=== PATIENT | female | born 1955 | race Caucasian/White ===

== ENCOUNTER 2016-04-01 09:32 | Emergency (ER) | payer OTHER ==
[~2016-04-01] VITALS: Ht 167.6 cm; Wt 104.0 kg
[~2016-04-01 09:32] MED LIST: ABL/15 PO; ALBUAER19 INH; FLUT0.15; LORA-741 PO; OMEP20CA59 PO; SERT100T PO; SERT25TA PO; vitamin d 3 PO
[2016-04-01] MEDS ORDERED: SODIUM CHLORIDE 0.9% 500ML 500 ML IV STA (09:42)
[2016-04-01 09:43] VITALS: TEMP 36.9; Ht 167.6 cm; Wt 104.0 kg
[2016-04-01] MEDS ORDERED: METHYLPREDNISOLONE 125 MG VIAL IV STA (09:57)
[2016-04-01] MEDS ORDERED: FAMOTIDINE IV INJ 20 MG in DEXTROSE 5% 100ML 100 ML IV STA (09:57)
[2016-04-01 10:06] LABS: BASO % 0.5 %; BASO ABS # 0.04 K/uL (0-0.2); COMPLETE YES; HEMATOCRIT 42.8 % (37-47); IG% 0.3 %; LYMPH % 36.3 %; LYMPH ABS # 2.74 K/uL (1.2-3.4); MEAN CELL VOLUME 82.1 fL (80-100); MEAN CORPUSCULAR HEMOGLOBIN 27.6 pg (25-34); MEAN CORPUSCULAR HGB CONC 33.6 g/dl (32-36); MEAN PLATELET VOLUME 10.1 fL (7.4-10.4); MONO % 8.5 %; NEUT % 54.4 %; PLATELET COUNT 275 K/uL (130-400); RED BLOOD COUNT 5.21 M/uL (4.2-5.4); WHITE BLOOD COUNT 7.54 K/uL (4.8-10.8)
[2016-04-01] MEDS ORDERED: ARIP2TAB3 PO (10:19)
[2016-04-01] MEDS ORDERED: SERT50TA PO (10:19)
[2016-04-01] MEDS ORDERED: CHOL100010 PO (10:20)
[2016-04-01 10:22] LABS: BUN/CREATININE RATIO 18.5 (10-20); CALCIUM 9.1 mg/dl (8.5-10.1); CREATININE 1.1 mg/dl (0.60-1.20); POTASSIUM 3.6 mmol/L (3.5-5.1)
--- NOTE | 2016-04-01 10:25 | EMERGENCY ROOM VISIT NOTE ---
History First contact with patient: 09:41 Chief Complaint: ALLERGIC REACTION Stated Complaint: ALLERGIC REACTION Nursing Triage Summary: pt to the ED via EMS from home with c/o right sdied facial swelling and errythema and inital SOB that pt does not have here in the ED pt stated that she took bactrim 1 dose at 3pm and doxycycline at 8pm which was her 2nd doseage. pt noticed at 3am that she had some symptoms when she woke up and looked in the mirror . pt is taking ABX for left LE infection no told medical office she had SOB but has none currently and no throat swelling. pt was given 50 of benedryl by EMS pt has a hx of schizo affective disorder with bipolar. pt has some swelling and errythema to right side of upper lip but no other hives or complaints pt does not admitt to any other new meds, soaps, lotions or foods History of Present Illness The patient is a 61 year old female who presents to the Emergency Room via ambulance with complaints of an "allergic reaction". The patient states that she believes she has had allergic reaction after taking Bactrim and doxycycline. She states day she saw Dr. Jamila Monet, a case finisher . In [place] for a an ulcer on her left lower extremity near her left ankle. She states that a culture and biopsy were obtained and a blue or[place]ar[place]iut was drawn around this area at the time. She was given doxycycline 100 mg 10 days. She was also prescribed mupirocin Appointment. She states that the redness did extremity on the borders therefore she went to be [facility] yesterday. She was inserted upon Bactrim DS. She took the first dose yesterday around 3 PM. She states that the erythema around the ulcer disappeared and she went to bed. She said she goes to bed early. She takes Zoloft with makes her sleepy. She then woke up around midnight and some dried Cheerios without milk. She then states around 3 AM she woke and looked in the mirror and saw that her face was red and she had called Jamila Monet's office and was told to go to the emergency department. She then came here via ambulance for facial swelling and pressure behind the eyes and dry mouth. She also felt that with the swelling in the face that she has had some shallow breathing. She denies any chest pain, or history of blood clots. Review of Systems A complete 10-point Review of Systems was discussed with the patient, with pertinent positives and negatives listed in the History of Present Illness. All remaining Review of Systems questions can be considered negative unless otherwise specified. Past Medical/Surgical History Schizoaffective disorder Social History Smoking Status: Never Smoker Drug Use: none Marital Status: single Occupation Status: disabled Current/Historical Medications Scheduled Albuterol Inhaler (Ventolin Inhaler), 2 PUFFS INH PRN Aripiprazole (Abilify), 15 MG PO DAILY Aripiprazole (Abilify), 2 MG PO DAILY Azelastine Hcl (Astelin Nasal [place]), 1-2 SPRAYS NA BID Cholecalciferol (Vitamin D), 4,000 UNITS PO DAILY Clindamycin HCl (Clindamycin HCl), 1 CAP PO QID Omeprazole (Prilosec), 20 MG PO DAILY Prednisone (Prednisone Tab), 1 TAB PO DAILY Sertraline (Zoloft), 50 MG PO DAILY Sertraline Hcl (Zoloft), 37.5 MG PO DAILY Allergies Coded Allergies: Ascorbate (Unverified Allergy, Unknown, diarrhea, 04/01/16) Biotin (Unverified Allergy, Unknown, diarrhea, 04/01/16) CI Pigment Blue 63 (Unverified Allergy, Unknown, other, 04/01/16) Calcium (Unverified Allergy, Unknown, diarrhea, 04/01/16) Carbohydrate (Unverified Allergy, Unknown, diarrhea, 04/01/16) Chloride (Unverified Allergy, Unknown, diarrhea, 04/01/16) Chromium (Unverified Allergy, Unknown, diarrhea, 04/01/16) Duloxetine (Unverified Allergy, Unknown, other, 04/01/16) Erythromycin (Verified Allergy, Unknown, ., 04/01/16) Folic Acid (Unverified Allergy, Unknown, diarrhea, 04/01/16) Gabapentin (Verified Allergy, Unknown, ., 04/01/16) Iodine (Verified Allergy, Unknown, ., 04/01/16) Latex1 -Allergic Contact Dermititis (Verified Allergy, Unknown, ., 04/01/16) Lorazepam (Unverified Allergy, Unknown, lightheaded, 04/01/16) Magnesium (Unverified Allergy, Unknown, diarrhea, 04/01/16) Manganese (Unverified Allergy, Unknown, diarrhea, 04/01/16) Molybdenum (Unverified Allergy, Unknown, diarrhea, 04/01/16) Niacin (Unverified Allergy, Unknown, diarrhea, 04/01/16) Phenylephrine (Unverified Allergy, Unknown, dizzy, 04/01/16) Potassium (Unverified Allergy, Unknown, diarrhea, 04/01/16) Protein (Unverified Allergy, Unknown, diarrhea, 04/01/16) Pyridoxine (Unverified Allergy, Unknown, diarrhea, 04/01/16) Selenium (Unverified Allergy, Unknown, diarrhea, 04/01/16) Sulfamethoxazole w/Trimethoprim (Unverified Allergy, Unknown, swelling, 04/01/16) Vitamin D (Unverified Allergy, Unknown, diarrhea, 04/01/16) Uncoded Allergies: CEFCIL (Allergy, Unknown, ., 06/03/11) ENVIRONMENTAL (Allergy, Unknown, ., 01/03/15) Physical Exam Vital Signs Date Time Temp Pulse Resp B/P Pulse Ox O2 Delivery O2 Flow Rate FiO2 04/01/16 13:02 67 16 146/83 97 04/01/16 11:28 68 17 118/76 95 Room Air 04/01/16 09:43 36.9 66 20 133/53 99 Room Air 04/01/16 09:39 62 Physical Exam VITAL SIGNS - Vital signs and nursing notes were reviewed. Afebrile, normotensive, non-tachycardic and is saturating well on room air 99%. GENERAL -61-year-old female her appearing her stated age who is in no acute distress. Patient is nontoxic in appearance. Communicates well with provider and answers questions appropriately. SKIN - there is perioral erythema and on the cheeks as well with upper lip edema and erythema. No intraoral lesions noted. HEAD - NC/AT. EYES - PERRL with EOMI bilaterally. Sclera anicteric. Palpebral conjunctiva pink and moist with no injection noted. EARS - No deformities of external structures noted on gross examination bilaterally. No pain elicited with palpation of the tragus bilaterally. External auditory canals without discharge or otorrhea. Tympanic membranes pearly beltran without retraction or bulging. No fluid or purulent material visualized behind the TM. Handle of malleus, umbo, cone of light, pars tensa/ flaccid all easily visualized. NOSE - Midline and without cyanosis. No epistaxis or purulent drainage noted. Septum midline without deviation or septal hematoma noted. MOUTH/OROPHARYNX - Without perioral cyanosis. Buccal mucosa pink and moist and without leukoplakia. Tongue midline with equal elevation of palate bilaterally. No tonsillar hypertrophy, erythema, or exudates noted. The airway is patent. Fair dentition noted. No intraoral lesions or evidence of SJS. NECK - Neck with FROM. Supple to palpation. Minimal lymphadenopathy noted. No nuchal rigidity. LUNGS - Chest wall symmetric without accessory muscle use, intercostals retractions, or central cyanosis. Normal vesicular breath sounds CTA B/L. No wheezes, rales, or rhonchi appreciated. CARDIAC - RRR with S1/S2. No murmur, rubs, or gallops appreciated. EXTREMITIES - No clubbing or peripheral cyanosis. No pretibial edema present. There is a small subcentimeter ulceration on the anterior distal tibia. Minimal drainage noted. Minimal to no erythema. +5/5 strength noted in UE/LE bilaterally. NEUROLOGIC - Cranial nerves II through XII grossly intact. Sensory intact to light touch throughout. PSYCH - A&Ox3 and cooperates fully with examiner. Pt is very pleasant and interacts well with examiner. Medical Decision & Procedures Laboratory Results 04/01/16 09:18 Red Blood Count 5.21, Mean Corpuscular Volume 82.1, Mean Corpuscular Hemoglobin 27.6, Mean Corpuscular Hemoglobin Concent 33.6, Mean Platelet Volume 10.1, Neutrophils (%) (Auto) 54.4, Lymphocytes (%) (Auto) 36.3, Monocytes (%) (Auto) 8.5, Eosinophils (%) (Auto) 0.0, Basophils (%) (Auto) 0.5, Neutrophils # (Auto) 4.10, Lymphocytes # (Auto) 2.74, Monocytes # (Auto) 0.64, Eosinophils # (Auto) 0.00, Basophils # (Auto) 0.04 04/01/16 09:18 Test 04/01/16 09:18 White Blood Count 7.54 K/uL (4.8-10.8) Red Blood Count 5.21 M/uL (4.2-5.4) Hemoglobin 14.4 g/dL (12.0-16.0) Hematocrit 42.8 % (37-47) Mean Corpuscular Volume 82.1 fL (80-100) Mean Corpuscular Hemoglobin 27.6 pg (25-34) Mean Corpuscular Hemoglobin Concent 33.6 g/dl (32-36) Platelet Count 275 K/uL (130-400) Mean Platelet Volume 10.1 fL (7.4-10.4) Neutrophils (%) (Auto) 54.4 % Lymphocytes (%) (Auto) 36.3 % Monocytes (%) (Auto) 8.5 % Eosinophils (%) (Auto) 0.0 % Basophils (%) (Auto) 0.5 % Neutrophils # (Auto) 4.10 K/uL (1.4-6.5) Lymphocytes # (Auto) 2.74 K/uL (1.2-3.4) Monocytes # (Auto) 0.64 K/uL (0.11-0.59) Eosinophils # (Auto) 0.00 K/uL (0-0.5) Basophils # (Auto) 0.04 K/uL (0-0.2) RDW Standard Deviation 42.2 fL (36.4-46.3) RDW Coefficient of Variation 14.2 % (11.5-14.5) Immature Granulocyte % (Auto) 0.3 % Immature Granulocyte # (Auto) 0.02 K/uL (0.00-0.02) Anion Gap 12.0 mmol/L (3-11) Est Creatinine Clear Calc Drug Dose 67.1 ml/min Estimated GFR () 63.6 Estimated GFR (Non- 54.9 BUN/Creatinine Ratio 18.5 (10-20) Calcium Level 9.1 mg/dl (8.5-10.1) Medications Administered Medications (Trade) Dose Ordered Sig/Shelly Route Start Time Stop Time Status Last Admin Dose Admin Sodium Chloride (Nss 500ml) 500 ml @ 500 mls/hr Q1H STAT IV 04/01/16 09:42 04/01/16 10:41 DC 04/01/16 10:17 500 MLS/HR Methylprednisolone Sodium Succinate 125 mg 125 mg NOW STAT IV 04/01/16 09:57 04/01/16 10:00 DC 04/01/16 10:18 125 MG Famotidine/ Dextrose (Pepcid IV Inj/ D5 100ml) 102 ml @ 200 mls/hr NOW STAT IV 04/01/16 09:57 04/01/16 10:27 DC 04/01/16 10:25 200 MLS/HR Medical Decision Patient was seen and evaluated as above. After obtaining a thorough history and physical examination IV access was obtained and a CBC, PRP, 500 mL of normal saline and 125 mg of Solu-Medrol and 20 mg of Pepcid were given to the patient as she had also received 50 mg of Benadryl in route via EMS. Patient appears to have findings consistent with that of allergic reaction with lip edema of the upper lip and surrounding erythema. Airway was patent. No evidence of severe infection of the left lower extremity. Patient's symptoms came about after taking the first dose of Bactrim. She was on this for the infection on the leg. Her shortness of breath was after her lip swelling and after giving her the Solu-Medrol, Benadryl and Pepcid that symptom resolved. There was no chest pain or shortness of breath then. Monitor was applied continuous pulse ox was initiated upon her arrival secondary to concern for airway. The airway was never compromise during her stay. She was observed for hours here in the emergency department and had near resolution of her symptoms. She is to take this antibiotic for infection on her leg and therefore I felt it important to call her case finisher and discuss other potential antibiotic choices. At 10:40 AM I spoke with Dr. Jamila Monet of dermatology, who also faxed me the culture and sensitivity report of the patient's wound. We decided to place her upon clindamycin. The organism was found to be staph aureus. Patient has multiple other allergies therefore clindamycin was chosen. She will take 300 mg 4 times a day for [address] Monet would like to see the patient tomorrow morning at 11 AM in her office for recheck. Patient seemed happy about this. Patient is to be sent home with 20 mg of prednisone for 5 days, Zantac for the next week, as well as Benadryl for the next 5-7 days. These are to help prevent a rebound reaction. I do not feel an EpiPen at this time prescribed from the emergency department is necessary, and she was instructed to follow-up with her family doctor regarding today's visit for recheck. Patient was offered 6 hour observation, however declined and noted that she would go home but would return or call 911 with any worsening of her symptoms. I do believe this is reasonable. Patient did not have any signs of anaphylaxis or airway compromise. She looked well and felt that she could go home. She was educated upon worrisome symptoms which to return, had questions answered prior to discharge, and was discharged home in good condition. In evaluation treatment this patient the following differential diagnoses were entertained: Allergic reaction, anaphylaxis, airway obstruction, cellulitis, sepsis, among others. Impression Primary Impression: Allergic reaction Additional Impression: Cellulitis Departure Information Dispostion Home / Self-Care Condition GOOD Prescriptions Clindamycin HCl (Clindamycin HCl) 300 Mg Cap 1 CAP PO QID for 7 Days, #28 CAP Prov: Epifanio Amato PA-C 04/01/16 Prednisone (Prednisone Tab) 20 Mg Tab 1 TAB PO DAILY for 5 Days, #5 TAB Prov: Epifanio Amato PA-C 04/01/16 Referrals Schuyler Vergara M.D. (PCP) Patient Instructions My [facility] Additional Instructions You have been treated in the Emergency Department for an Allergic Reaction. You have been treated and monitored in the Emergency Department appropriately. PLEASE ADD BACTRIM TO YOUR ALLERGIES LIST!!! PLEASE DISCONTINUE THE DOXYCYCLINE AND BACTRIM and begin clindamycin, PLEASE TAKE THE FOLLOWING MEDICATIONS IN ADDITION TO YOUR CURRENTLY PRESCRIBED MEDICATIONS (minus bactrim and doxycycline) 1.- Clindamycin 300mg every 6 hours for 7 days. (for your leg infection) 2. - You should take Benadryl (diphenhydramine) 25-50 mg orally every 4-6 hours for the next 5-7 days. This medication is lscy-crc-surecsy and you will NOT need a prescription to purchase this at your local pharmacy. You should continue taking the Benadryl for the COMPLETION of the 5-7 days. This is to prevent a rebound allergic reaction in the event that allergens are still present in your system. 3. - You should take Zantac (ranitidine) 75 mg orally once daily for the next 7 days. This medication is rday-xzy-shwloal and you will NOT need a prescription to purchase this at your local pharmacy. You should continue taking the Zantac for the COMPLETION of the 7 days. This is to prevent a rebound allergic reaction in the event that allergens are still present in your system. 4. -You have been prescribed Prednisone 20mg mg to be taken orally once a day for the next 5days. This is an anti-inflammatory medicine to be used to help minimize your symptoms. You should take the COMPLETE course of the medication. Please follow-up with Dr. Jamila Monet tomorrow at 11 AM at her office. ( [employer]) As with every Emergency Department visit, you should follow-up with your primary care provider in 2-3 days for reevaluation. Please have basic labs repeated with family doctor. Return to the Emergency Department if your current symptoms worsen despite treatment course outlined above, or if you develop any of the following symptoms : wheezing, tongue or face swelling, tightness in your throat, shortness of breath, or fainting. Please return the emergency department with any new/concerning symptoms. Problem Qualifiers Primary Impression: Allergic reaction Encounter type: initial encounter Qualified Codes: T78.40XA - Allergy, unspecified, initial encounter Additional Impression: Cellulitis Site of cellulitis: extremity Site of cellulitis of extremity: lower extremity Laterality: left Qualified Codes: L03.116 - Cellulitis of left lower limb
[2016-04-01] MEDS ORDERED: ASTN (10:53)
--- NOTE | 2016-04-01 11:30 | EMERGENCY ROOM VISIT NOTE ---
ED Visit Note First contact with patient: 09:41 Patient evaluated with PA. Agree with management and plan. Patient evaluated at 11:35 AM appears comfortable with mild ulceration to left ankle. There is no signs of lymphangitis nor severe cellulitis at this time. There is mild edema of the lip. Patient has follow-up with her doctor or to return for any worsening worrisome symptoms.
[2016-04-01] MEDS ORDERED: PRED20TA2 PO (11:43)
[2016-04-01] MEDS ORDERED: CLC/300 PO (11:43)
[2016-04-01 13:02] VITALS: BP 146/83; PULSE 67; O2SAT 97
== END 2016-04-01 13:02 | disposition home or self-care (01) ==
LOC: EDBD 09:32 → C.EDB 09:33
DX: T78.40XA Allergy, unspecified, initial encounter (principal); X58.XXXA Exposure to other specified factors, initial encounter; L03.116 Cellulitis of left lower limb; B95.61 Methicillin susceptible Staphylococcus aureus infection as the cause of diseases classified elsewhere; F25.9 Schizoaffective disorder, unspecified